=== PATIENT | female | born 1965 | race Caucasian/White ===

== ENCOUNTER 2017-09-19 20:34 | Emergency (ER) | payer BC, OTHER ==
[~2017-09-19] VITALS: Ht 167.6 cm; Wt 133.8 kg
[2017-09-19 21:15] LABS: URINE BILIRUBIN NEGATIVE (Negative); URINE BLOOD NEGATIVE (Negative); URINE COLOR YELLOW; URINE GLUCOSE-RANDOM* NEGATIVE (Negative); URINE KETONES NEGATIVE (Negative); URINE LEUKOCYTES-REFLEX TRACE (Negative); URINE PROTEIN (DIPSTICK) NEGATIVE (Negative); URINE SPECIFIC GRAVITY >= 1.030 (1.003-1.035); URINE UROBILINOGEN 0.2 E.U./dl (0.2-1.0)
[2017-09-19 21:35] LABS: ABSOLUTE NEUTROPHILS 7.8 thou/uL (1.4-8.2); BASOPHILS 0.8 % (0.0-2.0); EOSINOPHILS 2.9 % (0.0-3.0); HEMATOCRIT 36.3 % (37.0-47.0); HEMOGLOBIN 12.1 gm/dL (12.0-15.0); LYMPHOCYTES 20.5 % (24.0-44.0); MCH 29.3 pg (26.0-34.0); MCHC 33.3 g/dL (28.0-37.0); MCV 88.1 fL (80.0-100.0); MONOCYTES 3.6 % (1.0-8.0); PLATELET COUNT 363 thou/uL (150-400); POLYS 72.2 % (36.0-66.0); RBC 4.12 mil/uL (4.20-5.00); RDW 13.1 % (10.5-14.5); WBC 10.8 thou/uL (4.0-11.0)
[2017-09-19 21:38] LABS: MANUAL DIFF NO
[2017-09-19 21:44] LABS: CALCIUM 9.5 mg/dL (8.5-10.1); CREATININE 0.9 mg/dL (0.6-1.0); POTASSIUM 4.1 mmol/L (3.5-5.1)
[2017-09-19 21:49] LABS: ALBUMIN 3.7 g/dL (3.4-5.0); TOTAL BILIRUBIN 0.4 mg/dL (<0.1-1.0)
[2017-09-19] MEDS ORDERED: BENTYL 20 MG TA20 M1 PO (22:41)
[2017-09-19 22:47] VITALS: BP 175/89
== END 2017-09-19 22:55 | disposition home or self-care (01) ==
LOC: ER 20:34
PROVIDERS: Physician Assistant
DX: R10.13 Epigastric pain (principal); R11.0 Nausea; F32.9 Major depressive disorder, single episode, unspecified; I10 Essential (primary) hypertension; Z88.8 Allergy status to other drugs, medicaments and biological substances

== ENCOUNTER 2019-07-28 09:57 | Emergency (ER) | payer BC ==
[~2019-07-28] VITALS: Ht 167.6 cm; Wt 117.9 kg
[~2019-07-28 09:57] MED LIST: BENTYL 20 MG TA20 M1 PO
[2019-07-28 09:58] VITALS: BP 129/81
[2019-07-28] MEDS ORDERED: PREDNISONE 20 M20 MG PO (10:17)
== END 2019-07-28 10:18 | disposition home or self-care (01) ==
LOC: ER 09:57
DX: L25.9 Unspecified contact dermatitis, unspecified cause (principal); I10 Essential (primary) hypertension; F32.9 Major depressive disorder, single episode, unspecified; Z90.49 Acquired absence of other specified parts of digestive tract; Z88.8 Allergy status to other drugs, medicaments and biological substances